=== PATIENT | male | born 1945 ===

== ENCOUNTER 2018-08-30 19:19 | Emergency (ER) | payer OTHER ==
--- NOTE | 2018-08-30 19:32 | ER Report ---
History and Physical Time Seen By MD: 19:32 Hx. of Stated Complaint: pt having episodes of lightheadedness, nausea, diaphoresis, holter monitoring steambnoat shows svt HPI/ROS CHIEF COMPLAINT: Syncope HISTORY OF PRESENT ILLNESS: 73-year-old male having syncopal episodes for 3 weeks. He contacted his physician. He has a Holter monitor that was performed that shows variability in his heart rate from 36-130 bpm suggesting SVT. Patient is due to see cardiology on Monday. Patient states for the last 3 weeks. He's been having several episodes. He had 2 today, which scared him and prompted him to come to the ER for presentation. It was driving when he became diaphoretic, nauseous and short of breath. He usually lies on the floor on his stomach to get the episodes resolve within 5 minutes and he feels that he is back to normal. REVIEW OF SYSTEMS: Respiratory: No cough, no dyspnea. Cardiovascular: No chest pain, no palpitations. Gastrointestinal: No vomiting, no abdominal pain. Musculoskeletal: No back pain. Allergies: Coded Allergies: Penicillins (Verified Allergy, Unknown, 08/30/18) iodine (Verified Allergy, Unknown, 08/30/18) shellfish derived (Verified Allergy, Unknown, 08/30/18) Home Meds Active Scripts Diltiazem Hcl (DILTIAZEM 24HR CD) 120 Mg Cap.er.24h, 120 MG PO DAILY for heart rate control, #30 Prov:MARY MONDRAGON DO 08/30/18 Reported Medications Simvastatin (SIMVASTATIN) 20 Mg Tablet, 20 MG PO HS, TAB 08/30/18 Constitutional Vital Sign - Last 24 Hours 08/30/18 08/30/18 08/30/18 08/30/18 19:25 19:25 19:34 19:49 Temp 97.3 Pulse 66 64 62 Resp 20 14 11 B/P (MAP) 148/91 148/91 (110) Pulse Ox 97 94 O2 Delivery Room Air 08/30/18 08/30/18 08/30/18 08/30/18 19:54 20:04 20:09 20:19 Pulse ??? 66 Resp 15 B/P (MAP) 146/92 (110) 151/85 (107) Pulse Ox 93 08/30/18 08/30/18 08/30/18 20:30 20:34 20:49 Pulse 64 66 Resp 13 10 B/P (MAP) 139/87 (104) Pulse Ox 93 93 Physical Exam Vital signs stable, afebrile, pulse ox normal General Appearance: The patient is alert, has no immediate need for airway protection and no current signs of toxicity. Eyes: Pupils equal and round no injection. Respiratory: Chest is non tender, lungs are clear to auscultation. Cardiac: regular rate and rhythm Gastrointestinal: Abdomen is soft and non tender, no masses, bowel sounds normal. Musculoskeletal: Neck: Neck is supple and non tender. No thyromegaly Extremities have full range of motion and are non tender., No edema, no calf tenderness Skin: No rashes or lesions. DIFFERENTIAL DIAGNOSIS: After history and physical exam differential diagnosis was considered for syncope including but not limited to vasovagal syncope, arrhythmia, dehydration, and blood loss. Medical Decision Making Data Points Result Diagram: 08/30/18192908/30/181929 Laboratory Hematology Test 08/30/18 19:30 Red Blood Count 5.61 M/uL (4.00-5.60) Mean Corpuscular Volume 93.7 fL (80.0-96.0) Mean Corpuscular Hemoglobin 32.4 pg (26.0-33.0) Mean Corpuscular Hemoglobin Concent 34.5 g/dL (32.0-36.0) Red Cell Distribution Width 13.5 % (11.5-14.5) Mean Platelet Volume 8.6 fL (7.2-11.1) Neutrophils (%) (Auto) 51.8 % (39.4-72.5) Lymphocytes (%) (Auto) 37.6 % (17.6-49.6) Monocytes (%) (Auto) 7.1 % (4.1-12.4) Eosinophils (%) (Auto) 2.2 % (0.4-6.7) Basophils (%) (Auto) 1.3 % (0.3-1.4) Nucleated RBC Relative Count (auto) 0.1 /100WBC Neutrophils # (Auto) 4.9 K/uL (2.0-7.4) Lymphocytes # (Auto) 3.6 K/uL (1.3-3.6) Monocytes # (Auto) 0.7 K/uL (0.3-1.0) Eosinophils # (Auto) 0.2 K/uL (0.0-0.5) Basophils # (Auto) 0.1 K/uL (0.0-0.1) Nucleated RBC Absolute Count (auto) 0.01 K/uL Prothrombin Time 12.7 seconds (12.0-14.4) Prothromb Time International Ratio 0.95 Activated Partial Thromboplast Time 28 seconds (23-35) D-Dimer Quantitative (PE/DVT) 0.39 ug/ml (0-0.50) Sodium Level 138 mmol/L (137-145) Potassium Level 3.5 mmol/L (3.5-5.0) Chloride Level 105 mmol/L (98-107) Carbon Dioxide Level 21 mmol/L (22-30) Blood Urea Nitrogen 22 mg/dl (9-21) Creatinine 1.00 mg/dl (0.66-1.25) Glomerular Filtration Rate Calc > 60.0 Random Glucose 102 mg/dl (75-110) Calcium Level 9.5 mg/dl (8.4-10.2) Total Bilirubin 1.5 mg/dl (0.2-1.3) Aspartate Amino Transf (AST/SGOT) 28 U/L (0-35) Alanine Aminotransferase (ALT/SGPT) 29 U/L (0-56) Alkaline Phosphatase 74 U/L (0-126) Troponin I < 0.012 ng/ml B-Type Natriuretic Peptide < 5 pg/ml (0-100) Total Protein 7.4 g/dl (6.3-8.2) Albumin 4.2 g/dl (3.5-5.0) Thyroid Stimulating Hormone (TSH) 5.84 uIU/ml (0.46-4.68) Chemistry Test 08/30/18 19:30 White Blood Count 9.5 k/uL (4.5-11.0) Red Blood Count 5.61 M/uL (4.00-5.60) Hemoglobin 18.2 g/dL (14.0-18.0) Hematocrit 52.5 % (42.0-52.0) Mean Corpuscular Volume 93.7 fL (80.0-96.0) Mean Corpuscular Hemoglobin 32.4 pg (26.0-33.0) Mean Corpuscular Hemoglobin Concent 34.5 g/dL (32.0-36.0) Red Cell Distribution Width 13.5 % (11.5-14.5) Platelet Count 255 K/uL (150-450) Mean Platelet Volume 8.6 fL (7.2-11.1) Neutrophils (%) (Auto) 51.8 % (39.4-72.5) Lymphocytes (%) (Auto) 37.6 % (17.6-49.6) Monocytes (%) (Auto) 7.1 % (4.1-12.4) Eosinophils (%) (Auto) 2.2 % (0.4-6.7) Basophils (%) (Auto) 1.3 % (0.3-1.4) Nucleated RBC Relative Count (auto) 0.1 /100WBC Neutrophils # (Auto) 4.9 K/uL (2.0-7.4) Lymphocytes # (Auto) 3.6 K/uL (1.3-3.6) Monocytes # (Auto) 0.7 K/uL (0.3-1.0) Eosinophils # (Auto) 0.2 K/uL (0.0-0.5) Basophils # (Auto) 0.1 K/uL (0.0-0.1) Nucleated RBC Absolute Count (auto) 0.01 K/uL Prothrombin Time 12.7 seconds (12.0-14.4) Prothromb Time International Ratio 0.95 Activated Partial Thromboplast Time 28 seconds (23-35) D-Dimer Quantitative (PE/DVT) 0.39 ug/ml (0-0.50) Glomerular Filtration Rate Calc > 60.0 Calcium Level 9.5 mg/dl (8.4-10.2) Total Bilirubin 1.5 mg/dl (0.2-1.3) Aspartate Amino Transf (AST/SGOT) 28 U/L (0-35) Alanine Aminotransferase (ALT/SGPT) 29 U/L (0-56) Alkaline Phosphatase 74 U/L (0-126) Troponin I < 0.012 ng/ml B-Type Natriuretic Peptide < 5 pg/ml (0-100) Total Protein 7.4 g/dl (6.3-8.2) Albumin 4.2 g/dl (3.5-5.0) Thyroid Stimulating Hormone (TSH) 5.84 uIU/ml (0.46-4.68) Coagulation Test 08/30/18 19:30 Prothrombin Time 12.7 seconds Prothromb Time International Ratio 0.95 Activated Partial Thromboplast Time 28 seconds D-Dimer Quantitative (PE/DVT) 0.39 ug/ml EKG/Imaging EKG Interpretation 12 lead EKG: Rhythm: Sinus bradycardia [place]: normal QRS: normal ST segments: normal, no evidence of ischemia or dysrhythmia ED Course/Re-evaluation Clinical Indication for ER IV: IV Access ED Course Patient was minute to an examination room. H&P was done. The differential diagnoses was considered. Patient has a Holter monitor from his medical records that was provided, showing that he has tachycardic syndrome on his rhythm strips to 180 bpm. . Copies were made and placed in the medical record here. It appears to be paroxysmal atrial fibrillation or SVT. Patient's been having episodes for 3 weeks. They last brief episodes. He is able to fall to the floor on his stomach and lay there well. The symptoms resolved. He is back to normal and less than 5 minutes. 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 A 2nd episode which prompted them to come to the emergency department for evaluation. He has an appointment with cardiology early next week. Patient denies chest pain. Sometimes he notes diaphoresis and paleness. He notes some nausea but no shortness of breath. Patient is very active for his age. He rebound bikes excessive distances without any difficulty. He was out cutting several weeks ago and was able to carry an [place] quarter out without difficulty or chest pain. Patient's diagnostic studies tonight are unremarkable. His EKG is sinus bradycardia. He'll be covered with diltiazem 120 mg to prevent tachycardic rhythm. His advised to follow-up with cardiology as he has planned. Decision to Disposition Date: Aug 30, 2018 Decision to Disposition Time: 20:49 Depart Departure Latest Vital Signs Vital Signs Date Time Temp Pulse Resp B/P (MAP) Pulse Ox O2 Delivery O2 Flow Rate FiO2 08/30/18 20:49 66 10 93 08/30/18 20:30 139/87 (104) 08/30/18 19:25 97.3 Room Air Impression: Primary Impression: Near syncope Additional Impression: Paroxysmal A-fib Condition: Improved Disposition: HOME OR SELF-CARE New Scripts Diltiazem Hcl (DILTIAZEM 24HR CD) 120 Mg Cap.er.24h 120 MG PO DAILY for heart rate control, #30 Prov: MARY MONDRAGON DO 08/30/18 Patient Instructions: A-fib (Atrial Fibrillation) (ED) Additional Instructions: Follow-up with cardiology as planned on Monday Continue taking diltiazem 120 mg extended release once daily You may need an echocardiogram You may have paroxysmal atrial fibrillation You may have supraventricular tachycardia You may have sick sinus syndrome Problem Qualifiers MARY MONDRAGON DO Aug 30, 2018 19:32
[2018-08-30] MEDS ORDERED: ASPIRIN 81 MG CHEW PO ONE (19:35)
[2018-08-30] MEDS ORDERED: SIMV-49 PO (19:43)
--- NOTE | 2018-08-30 19:44 | EKG ---
FACILITY: [facility] PATIENT NAME: PIERRE TOVAR : [id number] MR: [id number] V: [id number] EXAM DATE: ORDERING PHYSICIAN: MARY MONDRAGON TECHNOLOGIST: THERESA Test Reason : NEAR SYNCOPE Blood Pressure : / mmHG Vent. Rate : 064 BPM Atrial Rate : 064 BPM P-R Int : 176 ms QRS Dur : 102 ms QT Int : 420 ms P-R-T Axes : 018 -04 018 degrees QTc Int : 433 ms Normal sinus rhythm Normal ECG No previous ECGs available Confirmed by CHERYL CONTRERAS ([id number]) on 08/30/2018 10:06:32 PM Referred By: Confirmed By:CHERYL CONTRERAS
[2018-08-30 20:04] LABS: PLATELET COUNT, AUTOMATED 255 K/uL (150-450)
[2018-08-30 20:22] LABS: INR 0.95
--- NOTE | 2018-08-30 20:26 | RADIOLOGY IMAGING REPORT ---
FACILITY: [facility] - [place] PATIENT NAME: Salvador Peña : 1945 MR: [id number] V: [id number] EXAM DATE: ORDERING PHYSICIAN: MARY MONDRAGON TECHNOLOGIST: Location: [facility] [place] Patient: Salvador Peña : 1945 Visit/Account:[id number] Date of Sevice: 08/30/2018 Examination: CHEST PA AND LAT Comparison: None. History: Chest pain. Findings: No consolidation, nodule, or peribronchial inflammation. No pneumothorax, edema, or effusio n. Cardiac and hilar contour size is within normal limits. Thoracic aorta is mildly tortuous. Osseous structures are intact. Thoracic spine multilevel mild degenerative change. IMPRESSION: No evidence of acute cardiopulmonary disease. Report Dictated By: Kip Rosen MD at 08/30/2018 8:20 PM Report E-Signed By: Kip Rosen MD at 08/30/2018 8:22 PM [id number]
[2018-08-30 20:30] VITALS: BP 139/87
[2018-08-30] MEDS ORDERED: DILTIAZEM CD 120 MG CAPCR PO SCH (20:50)
[2018-08-30] MEDS ORDERED: DILT120C18 PO (20:54)
== END 2018-08-30 21:07 | disposition home or self-care (01) ==
LOC: ER 20:07
DX: I48.0 Paroxysmal atrial fibrillation (principal); R55 Syncope and collapse
CPT/HCPCS: 71046; 82040; 82247; 82310; 82374; 82435; 82565; 82947; 83880; 84075; 84132; 84155; 84295; 84443; 84450; 84460; 84484; 84520; 85025; 85379; 85610; 85730; 93005; 99284